=== PATIENT | female | born 1950 | race Caucasian/White ===

== ENCOUNTER 2025-09-30 11:47 | Emergency (ER) | payer MEDICARE, OTHER, SELFPAY ==
[2025-09-30 11:51] VITALS: BP 187/98
--- NOTE | 2025-09-30 13:42 | ED.GENMED ---
History of Present Illness
General
Chief Complaint: Back Pain
Time Seen by Provider: 09/30/25 12:49
History of Present Illness
History of Present Illness:
75-year-old female presents to the emergency department for evaluation of persistent left scapular pain ongoing for the past 10 days. Denies any preceding trauma. Follows with pain management for low back issues and saw her pain management
specialist Toradol and tramadol which she states is helping very little. She has paresthesia that are radiating to the left index and middle fingers, denies any overt weakness of the extremity. Pain is not pleuritic and does not radiate to the
chest. No associated dyspnea. No preceding fevers or chills. She is requesting trigger point injections
Past History
Past History
ED Past Medical History: HTN and Other (Polio, glaucoma); Negative Hypercholesterolemia, IDDM or NIDDM
Social History
Tobacco: Non-smoker
Review of Systems
Review of Systems
Allergies reviewed?: Yes
All Other Systems: ROS reviewed and negative except as documented in HPI and ROS
Phy Exam
Physical Exam
Physical Exam:
GEN: Well appearing, NAD, WDWN
HEENT: Oral mucosa moist, no scleral icterus
Cardiac: Regular rate
Lung: No respiratory distress, no tachypnea, lungs clear to auscultation
MSK: No gross deformity or injuries. No midline thoracic spine tenderness. Tenderness elicited to the thoracic parascapular/paraspinous musculature with no crepitus or palpable deformity
Skin: Good color, no pallor or jaundice, no rashes
Neuro: AO x3, moves all extremities freely. Bilateral upper extremity strength is 5 out of 5 in all baez.
Psych: Calm, cooperative
Course
Orders/Labs/Results
Orders:
Orders
09/30/25 11:54
EKG [Electrocardiogram (*1)] Urgent
Reason for Study: Fatigue / Weakness
EKG- Treatment ONCE
09/30/25 13:16
Triamcinolone Injectable [Kenalog-40] 40 mg IM NOW STA
Vital Signs
Initial and Last Documented VS:
Initial Vital Signs
Temp Pulse Resp BP Pulse Ox
98 F 95 16 187/98 98
09/30/25 11:51 09/30/25 11:51 09/30/25 11:51 09/30/25 11:51 09/30/25 11:51
Last Documented Vital Signs
Temp Pulse Resp BP Pulse Ox
98 F 75 16 167/87 98
09/30/25 11:51 09/30/25 13:45 09/30/25 13:45 09/30/25 13:45 09/30/25 13:45
Procedures
Other
Indication for procedure:: Thoracic myofascial pain
Procedure completed by: Jim Nugent PA-C
Additional Procedure:
The locations of maximal tenderness to the thoracic paraspinous musculature were palpated and localized. Skin prepped with alcohol swab. 3 separate injections were given with 10 mg Kenalog and 1.5 cc of 1% lidocaine. Patient tolerated well with
no complications
MDM/Problems Addressed
MDM/Problems Addressed:
Patient given trigger point injections. 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 No clinical suspicion for cardiopulmonary etiology to symptoms given easy reproducibility on
exam
Comment
Comment:
EKG independently interpreted by me shows normal sinus rhythm at a rate of [address] changes concerning for ischemia
*Pulse Oximetry
SaO2: 98
Oxygen Mode of Delivery: Room air
Patient hypoxic: no
*Critical Care Note
Total Time (30-74mins, 75-104mins- exclusive of procedures): Not Applicable
ED Attending Note
-
Portions of this chart may have been created with voice recognition software.� Occasional wrong word or��sound alike� substitutions may have occurred due to the inherent limitations of voice recognition software.
Discharge Plan
Departure
Patient Disposition: Home (Routine Discharge)
Date of Disposition: 09/30/25
Time of Disposition: 13:42
Patient with high blood pressure during this ER visit?: Yes
Discharge Problem:
Myofascial pain syndrome of thoracic spine
Instructions: Trigger Point Injection
Prescriptions:
No Action
latanoprost 0.005 % Drops
1 drp RIGHT EYE HS
dorzolamide-timolol [Cosopt] 22.3-6.8 mg/mL Drops
1 drp RIGHT EYE BID
clonidine HCl 0.1 mg Tablet
0.1 mg PO BID 30 Days Qty: 60 0RF
aspirin 81 mg Tablet,Chewable
81 mg PO DAILY 30 Days Qty: 30 0RF
ezetimibe 10 mg Tablet
10 mg PO HS 30 Days Qty: 30 0RF
metoclopramide HCl [Reglan] 10 mg tablet
10 mg PO Q6H PRN (Reason: headache) 7 Days Qty: 28 0RF
meclizine 25 mg tablet
25 mg PO DAILY PRN (Reason: dizziness) 7 Days Qty: 7 0RF
Interventions
Interventions:
*Risk Screen - Suicide Last Done: 09/30/25 11:51
*General Assessment Last Done: 09/30/25 13:06
*Neglect/Abuse Screening Last Done: 09/30/25 11:51
*ED- Fall Risk Assessment Last Done: 09/30/25 13:06
*ED COVID-19 Vaccine History Last Done: 09/30/25 13:06
*ED Influenza Vaccine History Last Done: 09/30/25 13:06
*Nursing Disposition Last Done: 09/30/25 13:45
ED-Musculoskeletal Assessment Last Done: 09/30/25 13:07
Discharge Date and Time
Discharge Date/Time: 09/30/25 13:50
Print Language: FAROESE
[2025-09-30 13:45] VITALS: BP 167/87
== END 2025-09-30 13:50 | disposition home or self-care (01) ==
LOC: EMR 11:47
PROVIDERS: EMERGENCY PHYSICIAN Emergency Medicine; FAMILY PHYSICIAN Internal Medicine
DX: M79.18 Myalgia, other site (principal); I10 Essential (primary) hypertension; A80.9 Acute poliomyelitis, unspecified; H40.9 Unspecified glaucoma
CPT/HCPCS: 99283; 93005